=== PATIENT | female | born 2000 | race Caucasian/White ===

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

== ENCOUNTER 2018-06-26 16:51 | Emergency (ER) | payer BC ==
--- NOTE | 2018-06-26 18:21 | UC ---
FLU HPI - HPI Summary HPI Summary: 17 yo female presents with 3 days of dry cough, feeling hot/cold, and fatigue. She is a [employer] student and says that many of her classmates have been sick with similar symptoms and were dx'd with the flu. She has not been taking anything OTC for her symptoms. Has not taken her temperature. Denies sore throat , sinus symptoms, SOB, rash, abdominal pain, n/v. - History of Current Complaint Stated Complaint: SORE THROAT/ACHY/SWEATS Time Seen by Provider: 06/26/18 18:21 Hx Obtained From: Patient Hx Last Menstrual Period: 06/19/17 Onset/Duration: Sudden Onset Severity Currently: Mild Severity Initially: Mild Pain Intensity: 3 Pain Scale Used: 0-10 Numeric - Allergy/Home Medications Allergies/Adverse Reactions: Allergies Allergy/AdvReac Type Severity Reaction Status Date / Time No Known Allergies Allergy Verified 02/03/18 09:20 Home Medications: Home Medications Trinessa Lo 1 tab PO QPM 06/26/18 [History] PMH/Surg Hx/FS Hx/Imm Hx - Additional Past Medical History Additional PMH: None - Surgical History Surgical History: Yes Surgery Procedure, Year, and Place: RIGHT FOOT SX WITH HARDWARE - Family History Known Family History: Positive: None - Social History Occupation: Student Lives: Dormitory/Roommates Alcohol Use: Rare Substance Use Type: None Smoking Status (MU): Never Smoked Tobacco Review of Systems All Other Systems Reviewed And Are Negative: Yes Constitutional: Positive: Chills, Fatigue, Other - Body aches Skin: Positive: Negative Eyes: Positive: Negative ENT: Positive: Negative Respiratory: Positive: Cough Cardiovascular: Positive: Negative Gastrointestinal: Positive: Negative Neurovascular: Positive: Negative Neurological: Positive: Negative Psychological: Positive: Negative Physical Exam - Summary Physical Exam Summary: GENERAL: NAD. WDWN. No pain distress. SKIN: No rashes, sores, lesions, or open wounds. HEENT: Head: AT/NC Eyes: EOM intact. Conjunctiva clear without inflammation or discharge. Ears: Hearing grossly normal. TMs intact, no bulging, erythema, or edema. Nose: Nasal mucosa pink and moist. NTTP maxillary and frontal sinus. Throat: Posterior oropharynx without exudates, erythema, or tonsillar enlargement. Uvula midline. NECK: Supple. Nontender. No lymphadenopathy. CHEST: CTAB. No r/r/w. No accessory muscle use. Breathing comfortably and in no distress. CV: RRR. Without m/r/g. Pulses intact. Cap refill <2seconds NEURO: Alert. PSYCH: Age appropriate behavior. Triage Information Reviewed: Yes Vital Signs: Vital Signs: Temp Pulse Resp BP Pulse Ox 98.2 F 86 20 133/73 100 06/26/18 18:22 06/26/18 18:22 06/26/18 18:22 06/26/18 18:22 06/26/18 18:22 Laboratory Tests 06/26/18 18:26 Influenza A (Rapid) Negative Influenza B (Rapid) Negative Vital Signs Reviewed: Yes Flu Course/Dx - Course Course Of Treatment: POC flu negative, however given exposure and symptoms - suspect flu-like illness. Advised to rest, drink clear fluids, and take tylenol/ ibuprofen for discomfort. F/u if symptoms do not improve. - Differential Dx/Diagnosis Provider Diagnosis: Viral syndrome Discharge - Sign-Out/Discharge Documenting (check all that apply): Patient Departure All imaging exams completed and their final reports reviewed: No Studies - Discharge Plan Condition: Stable Disposition: HOME Patient Education Materials: Viral Syndrome (ED) Forms: *School Release Referrals: No Primary Care Phys,NOPCP [Primary Care Provider] - Additional Instructions: If you develop a fever, shortness of breath, chest pain, new or worsening symptoms - please call your PCP or go to the ED. May take tylenol/ibuprofen for your discomfort - Billing Disposition and Condition Condition: STABLE Disposition: Home - Attestation Statements Provider Attestation: Per institutional requirements, I have reviewed the chart, however, I was not consulted specifically or made aware of this patient by the midlevel provider. I did not personally evaluate, interact with , or disposition this patient.
[2018-06-26 18:27] VITALS: BP 133/73
[2018-06-26 18:38] LABS: Influenza A Molecular NEGATIVE (Negative); Influenza B Molecular NEGATIVE (Negative)
== END 2018-06-26 18:52 | disposition home or self-care (01) ==
LOC: UCCORT 16:51
DX: B34.9 Viral infection, unspecified (principal); R05 Cough; R52 Pain, unspecified
CPT/HCPCS: 99211; G0463

== ENCOUNTER 2018-09-09 09:38 | Emergency (ER) | payer BC ==
[2018-09-09 10:31] VITALS: BP 103/65
--- NOTE | 2018-09-09 10:54 | UC ---
Throat Pain/Nasal Misha HPI - HPI Summary HPI Summary: sore throat x 3 days pain is sever 6 out of 10 , no fever, + chills, body aches, mild nasal congestion , no cough - History of Current Complaint Chief Complaint: UCRespiratory Stated Complaint: ST,FEVER Time Seen by Provider: 09/09/18 10:41 Hx Obtained From: Patient Hx Last Menstrual Period: 08/30/18 ?: No Onset/Duration: Gradual Onset, Lasting Days - 3, Still Present Severity: Moderate Pain Intensity: 7 Cough: None Associated Signs & Symptoms: Positive: Nasal Discharge. Negative: Fever - Allergies/Home Medications Allergies/Adverse Reactions: Allergies Allergy/AdvReac Type Severity Reaction Status Date / Time No Known Allergies Allergy Verified 09/09/18 10:23 PMH/Surg Hx/FS Hx/Imm Hx Previously Healthy: Yes - Surgical History Surgical History: Yes Surgery Procedure, Year, and Place: RIGHT FOOT SX WITH HARDWARE. NASAL/SINUS SURGERY 04/2018 - Family History Known Family History: Positive: None Negative: Diabetes - Social History Alcohol Use: Occasionally Substance Use Type: None Smoking Status (MU): Never Smoked Tobacco Review of Systems All Other Systems Reviewed And Are Negative: Yes Constitutional: Positive: Chills, Fatigue Skin: Positive: Negative Eyes: Positive: Negative ENT: Positive: Sore Throat, Sinus Congestion Respiratory: Positive: Negative Is Patient Immunocompromised?: No Physical Exam Triage Information Reviewed: Yes Appearance: Well-Appearing, No Pain Distress, Well-Nourished Vital Signs: Initial Vital Signs Temp 98.4 F 09/09/18 10:24 Pulse 103 09/09/18 10:24 Resp 20 09/09/18 10:24 BP 103/65 09/09/18 10:24 Pulse Ox 98 09/09/18 10:24 Vital Signs Reviewed: Yes Eye Exam: Normal Eyes: Positive: Conjunctiva Clear ENT: Positive: Normal ENT inspection, Hearing grossly normal, Pharyngeal erythema. Negative: TM bulging, TM dull, TM red Neck: Positive: Supple, Nontender, No Lymphadenopathy Respiratory: Positive: Chest non-tender, Lungs clear, Normal breath sounds Cardiovascular: Positive: RRR, No Murmur, Pulses Normal Skin Exam: Normal Throat Pain/Nasal Course/Dx - Differential Dx/Diagnosis Provider Diagnosis: Pharyngitis Discharge - Sign-Out/Discharge Documenting (check all that apply): Patient Departure All imaging exams completed and their final reports reviewed: No Studies - Discharge Plan Condition: Stable Disposition: HOME Patient Education Materials: Pharyngitis (ED) Referrals: No Primary Care Phys,NOPCP [Primary Care Provider] - If Needed - Billing Disposition and Condition Condition: STABLE Disposition: Home
== END 2018-09-09 11:00 | disposition home or self-care (01) ==
LOC: UCCORT 09:38
DX: J02.9 Acute pharyngitis, unspecified (principal); R68.83 Chills (without fever); M79.10 Myalgia, unspecified site; R09.81 Nasal congestion; R53.83 Other fatigue
CPT/HCPCS: 87651; 99211; G0463

== ENCOUNTER 2019-02-14 15:31 | Emergency (ER) | payer BC ==
[2019-02-14 15:56] VITALS: BP 124/85
--- NOTE | 2019-02-14 16:12 | UC ---
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 She did not continue playing but applied ice and an operations trainer applied an JOSE MANUEL wrap immediately. - History of Current Complaint Chief Complaint: UCGeneralIllness Stated Complaint: RIGHT FOOT/ANKLE INJURY Time Seen by Provider: 02/14/19 15:37 Hx Obtained From: Patient Hx Last Menstrual Period: 02/11/19 ?: No Onset/Duration: Sudden Onset Severity Initially: Moderate Severity Currently: Moderate Pain Intensity: 7 Aggravating Factor(s): Ambulation Alleviating Factor(s): Rest, Elevation Able to Bear Weight: Yes - but with pain - Allergies/Home Medications Allergies/Adverse Reactions: Allergies Allergy/AdvReac Type Severity Reaction Status Date / Time No Known Allergies Allergy Verified 02/14/19 15:57 PMH/Surg Hx/FS Hx/Imm Hx Previously Healthy: Yes - Surgical History Surgical History: Yes Surgery Procedure, Year, and Place: RIGHT FOOT SX WITH HARDWARE. NASAL/SINUS SURGERY 04/2018 - Family History Known Family History: Positive: None Negative: Diabetes - Social History Occupation: Student Lives: Dormitory/Roommates Alcohol Use: Occasionally Substance Use Type: None Smoking Status (MU): Never Smoked Tobacco Review of Systems All Other Systems Reviewed And Are Negative: Yes Skin: Positive: Bruising - Minimal bruising lateral right ankle. Motor: Positive: Negative Neurovascular: Positive: Negative Musculoskeletal: Positive: Negative, Other: - has ROm but slowly due to pain Is Patient Immunocompromised?: No Physical Exam Triage Information Reviewed: Yes Appearance: Well-Appearing, No Pain Distress, Well-Nourished Vital Signs: Initial Vital Signs Temp 99.1 F 02/14/19 15:53 Pulse 88 02/14/19 15:53 Resp 20 02/14/19 15:53 BP 124/85 02/14/19 15:53 Pulse Ox 99 02/14/19 15:53 Vital Signs Reviewed: Yes Musculoskeletal: Positive: Strength Intact - Good knee stability. Lateral right ankle with tenderness on palpation., ROM Intact, Other: - minimal bruising and swelling lateral right ankle. [place]'s intact and non-tender. Good periph pulses, neurosensation, cap refill, no deformity, foot non-tender Neurological Exam: Normal Neurological: Positive: Other: - Jose Manuel wrap by operations trainer was too tight causing the foot distal to the wrap to turn light purple and feel cool. After removal, foot returned to normal color and temp. Skin Exam: Normal Lower Extremity Course/Dx - Course Course Of Treatment: Right ankle x-ray: Report: #. No fracture, osteochondral lesion, or articular malalignment evident. #. Intact appearing lag screw at the base of the fifth metatarsal without visualized fifth metatarsal fracture. #. Os peroneum accessory ossicle. #. Unremarkable soft tissue contours. IMPRESSION: #. Negative exam. - Differential Dx/Diagnosis Provider Diagnosis: Right ankle sprain Discharge ED - Sign-Out/Discharge Documenting (check all that apply): Patient Departure All imaging exams completed and their final reports reviewed: Yes - Discharge Plan Condition: Fair Disposition: HOME Patient Education Materials: Ankle Sprain (DC) Forms: *Physical Education Release Referrals: Pravin Cantu MD [Medical Doctor] - No Primary Care Phys,NOPCP [Primary Care Provider] - Additional Instructions: Ice intermittently over the next 2-3 days, elevate as much as possible. Tylenol/ Advil as directed for pain. Definite follow up with Dr. Cantu before returning to sports. - Billing Disposition and Condition Condition: FAIR Disposition: Home - Attestation Statements Provider Attestation: Per institutional requirements, I have reviewed the chart, however, I was not consulted specifically or made aware of this patient by the midlevel provider. I did not personally evaluate, interact with , or disposition this patient.
== END 2019-02-14 16:23 | disposition home or self-care (01) ==
LOC: UCCORT 15:31
DX: S93.401A Sprain of unspecified ligament of right ankle, initial encounter (principal); X50.9XXA Other and unspecified overexertion or strenuous movements or postures, initial encounter; Y93.66 Activity, soccer; Y92.9 Unspecified place or not applicable
CPT/HCPCS: 99211; G0463

== ENCOUNTER 2019-04-01 11:33 | Emergency (ER) | payer BC ==
[2019-04-01 12:18] VITALS: BP 105/64
[2019-04-01 12:56] LABS: Influenza A Molecular NEGATIVE (Negative); Influenza B Molecular NEGATIVE (Negative)
--- NOTE | 2019-04-01 12:58 | UC ---
FLU HPI - HPI Summary HPI Summary: Patient is a 18yo female [employer] student presenting with headache, body aches, chills, night sweats, fatigue and mild cough x2 days. Patient also notes sore throat that she believes is from coughing. Patient denies SOB and chest pain. Denies fever. Denies n/v/d and abdominal pain. Patient states this same thing happens approx 4 times every year. States "they always think its the flu but the test is always negative." States she has had strep and "its not strep." States she was tested for mono last year and it was negative. States symptoms always resolve within 5 days. Has been taking tylenol for pain relief. - History of Current Complaint Chief Complaint: UCGeneralIllness Stated Complaint: FLU LIKE SYMP Hx Obtained From: Patient Hx Last Menstrual Period: 03/15/19 Onset/Duration: Gradual Onset, Lasting Days Severity Currently: Moderate Severity Initially: Moderate Pain Intensity: 7 Pain Scale Used: 0-10 Numeric - Allergy/Home Medications Allergies/Adverse Reactions: Allergies Allergy/AdvReac Type Severity Reaction Status Date / Time No Known Allergies Allergy Verified 02/14/19 15:57 PMH/Surg Hx/FS Hx/Imm Hx Previously Healthy: Yes - Surgical History Surgical History: Yes Surgery Procedure, Year, and Place: RIGHT FOOT SX WITH HARDWARE. NASAL/SINUS SURGERY 04/2018 - Family History Known Family History: Positive: None Negative: Diabetes - Social History Occupation: Student Lives: Dormitory/Roommates Alcohol Use: Rare Substance Use Type: None Smoking Status (MU): Never Smoked Tobacco Review of Systems All Other Systems Reviewed And Are Negative: Yes Constitutional: Positive: Chills, Fatigue. Negative: Fever ENT: Positive: Sore Throat. Negative: Ear Ache, Nasal Discharge, Sinus Congestion Respiratory: Positive: Cough - dry Cardiovascular: Positive: Negative Gastrointestinal: Positive: Negative Musculoskeletal: Positive: Myalgia Neurological: Positive: Headache. Negative: Weakness Physical Exam Triage Information Reviewed: Yes Appearance: Well-Appearing, No Pain Distress, Well-Nourished Vital Signs: Initial Vital Signs Temp 98.3 F 04/01/19 12:13 Pulse 63 04/01/19 12:13 Resp 18 04/01/19 12:13 BP 105/64 04/01/19 12:13 Pulse Ox 98 04/01/19 12:13 Lab Results 04/01/19 Range/Units 12:43 Influenza A (Rapid) Negative (Negative) Influenza B (Rapid) Negative (Negative) Vital Signs Reviewed: Yes Eyes: Positive: Conjunctiva Clear ENT: Positive: Hearing grossly normal, Pharyngeal erythema, TMs normal, Uvula midline. Negative: Nasal congestion, Nasal drainage, Tonsillar swelling, Tonsillar exudate, Trismus, Muffled voice, Hoarse voice Neck: Positive: Supple, No Lymphadenopathy, Tenderness @ - tonsillar nodes Respiratory Exam: Normal Respiratory: Positive: Lungs clear, Normal breath sounds, No respiratory distress. Negative: Crackles, Rhonchi, Stridor, Wheezing Cardiovascular Exam: Normal Cardiovascular: Positive: RRR Neurological: Positive: Alert. Negative: Fatigued Psychological: Positive: Age Appropriate Behavior Skin Exam: Normal Flu Course/Dx - Course Course Of Treatment: Patient VS normal and well-appearing. Educated on viral illnesses and instructed to continue with symptomatic treatment. Patient voiced concern about recurrent viral illness so I encouraged her to get basic blood work. Patient declined wanting blood work here, stating she was going home this weekend and would follow up with her pcp for further eval. Patient voiced understanding and agreed with plan. - Differential Dx/Diagnosis Provider Diagnosis: Flu-like symptoms Discharge ED - Sign-Out/Discharge Documenting (check all that apply): Patient Departure All imaging exams completed and their final reports reviewed: No Studies - Discharge Plan Condition: Stable Disposition: HOME Patient Education Materials: Viral Syndrome (ED) Forms: *School Release Referrals: [facility] [Outside] - If Needed Additional Instructions: As discussed, your flu test was negative today. Your symptoms are likely caused by a different virus. You may continue to take over the counter cough and cold medications for your cold symptoms. You may continue to take ibuprofen and/or tylenol as directed for pain relief. Get plenty of rest and increase your fluid intake. Follow up with your primary care doctor at home this next week for further evaluation and possible blood work for recurrent illnesses. You may also go to the [facility] listed below if needed. - Billing Disposition and Condition Condition: STABLE Disposition: Home
== END 2019-04-01 13:23 | disposition home or self-care (01) ==
LOC: UCCORT 11:33
DX: R51 Headache (principal); R53.83 Other fatigue; J02.9 Acute pharyngitis, unspecified; R05 Cough; M79.10 Myalgia, unspecified site
CPT/HCPCS: 99211; G0463